=== PATIENT | male | born 1980 | race Hispanic/Latino ===

== ENCOUNTER 2019-05-10 18:15 | Emergency (ER) ==
--- NOTE | 2019-05-10 20:13 | RAD ---
TWO VIEWS RIGHT HUMERUS: Date: 05-10-2019 Comparison: None. History: Injury, trauma, pain. FINDINGS: There is an anterior subcoracoid dislocation of the right glenohumeral joint. No associated fracture is evident. Post reduction imaging advised. IMPRESSION: Dislocation of the right glenohumeral joint. POS: C[facility]AN[facility]
--- NOTE | 2019-05-10 20:21 | RAD ---
THREE VIEWS RIGHT SHOULDER: Date: 05-10-2019 Comparison: None. History: Injury, trauma, pain. FINDINGS: There is an anterior subcoracoid dislocation of the right glenohumeral joint. No displaced fracture o r dislocation. Post reduction imaging advised. IMPRESSION: Dislocated right glenohumeral joint. POS: C[facility]ANDRA
== END 2019-05-10 19:59 | disposition left against medical advice (07) ==
LOC: ERS 18:15
DX: Z53.21 Procedure and treatment not carried out due to patient leaving prior to being seen by health care provider (principal)

== ENCOUNTER 2019-05-14 08:53 | Emergency (ER) | payer SELFPAY ==
--- NOTE | 2019-05-14 12:38 | RAD ---
Exam: Right shoulder 3 views: HISTORY: Injury COMPARISON: 05/10/2019 FINDINGS: Anterior subcoracoid right shoulder dislocation. No overt acute fracture. 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 IMPRESSION: Anterior subcoracoid right glenohumeral joint dislocation.
[2019-05-14] MEDS ORDERED: HYDROcodone/Acetaminophen 10/325 mg Tablet ONE (13:50)
--- NOTE | 2019-05-14 15:11 | RAD ---
Exam: Right shoulder 2 views: HISTORY: Post reduction of glenohumeral joint dislocation FINDINGS: The glenohumeral joint to previous noted dislocation has been reduced. No overt acute fracture or dis location. IMPRESSION: Reduction of the previously noted right glenohumeral joint dislocation.
== END 2019-05-14 15:17 | disposition home or self-care (01) ==
LOC: ERS 08:53
DX: S43.014A Anterior dislocation of right humerus, initial encounter (principal); F17.210 Nicotine dependence, cigarettes, uncomplicated; Z71.6 Tobacco abuse counseling; W11.XXXA Fall on and from ladder, initial encounter
CPT/HCPCS: 23650; 99406